=== PATIENT | male | born 1980 | race Native Hawaiian/Other Pacific Islander ===

== ENCOUNTER 2021-05-15 16:28 | Emergency (ER) | payer OTHER ==
[~2021-05-15] VITALS: Ht 175.3 cm; Wt 86.2 kg
[2021-05-15 16:33] VITALS: BP 133/68; TEMP 97.5
== END 2021-05-15 18:37 ==
LOC: ED 16:28
DX: S09.8XXA Other specified injuries of head, initial encounter (principal); S00.83XA Contusion of other part of head, initial encounter; S16.1XXA Strain of muscle, fascia and tendon at neck level, initial encounter; Y04.0XXA Assault by unarmed brawl or fight, initial encounter; Y92.149 Unspecified place in prison as the place of occurrence of the external cause
CPT/HCPCS: 96372; 99283; J1885

== ENCOUNTER 2021-10-24 11:55 | Emergency (ER) | payer OTHER ==
[~2021-10-24] VITALS: Ht 175.3 cm; Wt 86.2 kg
[2021-10-24 11:57] VITALS: TEMP 97.7
[2021-10-24 12:23] LABS: PLATELET COUNT 168 K/uL (142-355)
[2021-10-24 12:37] LABS: POTASSIUM 4.4 mmol/L (3.6-5.2)
[2021-10-24 13:52] VITALS: BP 123/71
== END 2021-10-24 13:52 ==
LOC: ED 11:55
PROVIDERS: Hospitalist
DX: K59.09 Other constipation (principal); R10.84 Generalized abdominal pain
CPT/HCPCS: 80053; 81002; 83690; 85027; 96360; 96374; 96375; 99284; J1170; J1885; J2405